=== PATIENT | female | born 1980 | race Caucasian/White ===

== ENCOUNTER 2017-01-05 08:58 | Emergency (ER) | payer OTHER | END 2017-01-05 10:25 | disposition home or self-care (01) | LOC: D.ER 08:58 | DX: M25.511 Pain in right shoulder (principal); Z91.81 History of falling ==

== ENCOUNTER 2017-03-07 08:58 | Emergency (ER) | payer OTHER | END 2017-03-07 10:42 | disposition home or self-care (01) | LOC: D.ER 08:58 | DX: S86.911A Strain of unspecified muscle(s) and tendon(s) at lower leg level, right leg, initial encounter (principal); X58.XXXA Exposure to other specified factors, initial encounter; Y93.89 Activity, other specified; Y92.89 Other specified places as the place of occurrence of the external cause; M54.5 Low back pain ==

== ENCOUNTER 2017-07-24 08:29 | Emergency (ER) | payer OTHER ==
[2017-07-24 09:40] LABS: HCG SERUM NEGATIVE (NEGATIVE)
== END 2017-07-24 12:02 | disposition home or self-care (01) ==
LOC: D.ER 08:29
PROVIDERS: Emergency Medicine
DX: S20.229A Contusion of unspecified back wall of thorax, initial encounter (principal); X50.0XXA Overexertion from strenuous movement or load, initial encounter; Y93.89 Activity, other specified; Y92.019 Unspecified place in single-family (private) house as the place of occurrence of the external cause; M54.6 Pain in thoracic spine

== ENCOUNTER 2018-09-18 18:52 | Emergency (ER) | payer SELFPAY ==
[~2018-09-18] VITALS: Ht 172.7 cm; Wt 84.1 kg
[2018-09-18 19:00] VITALS: Ht 172.7 cm; Wt 84.1 kg
[2018-09-18] MEDS ORDERED: KLONOPIN0.5 MG PO (19:02)
[2018-09-18] MEDS ORDERED: ULTRAM50 MG PO (19:02)
[2018-09-18 20:00] LABS: HEMATOCRIT 37.7 % (36.0-48.0); HEMOGLOBIN 12.8 g/dL (12-16); MCH 30.7 pg (26.0-34.0); MCV 90.4 fL (80.0-100.0); MEAN PLATELET VOLUME 10.2 fL (7.4-10.4); PLATELET COUNT 400 10x3/uL (130-400); RBC 4.17 10x6/uL (4.00-5.40); RDW 13.1 % (11.5-14.5); WBC 21.1 10x3/uL (4.8-10.8)
[2018-09-18 20:09] LABS: APPEARANCE CLOUDY (CLEAR); BACTERIA FEW /hpf (NONE SEEN); BILIRUBIN NEGATIVE (NEGATIVE); COLOR YELLOW (YELLOW); GLUCOSE NEGATIVE (NEGATIVE); KETONE NEGATIVE (NEGATIVE); NITRITE NEGATIVE (NEGATIVE); PROTEIN NEGATIVE (NEGATIVE); RED CELLS - URINE 0-5 /hpf (0-5); SPECIFIC GRAVITY 1.025 (1.005-1.020); UROBILINOGEN NORMAL (NORMAL); WHITE CELLS - URINE 0-5 /hpf (0-5)
[2018-09-18 20:16] LABS: ALBUMIN 3.7 g/dL (3.4-5.0); ANION GAP 11.1 mmol/L (8-16); BILIRUBIN - TOTAL 0.35 mg/dL (0.2-1.3); CARBON DIOXIDE 28.3 mmol/L (21.0-32.0); CREATININE - SERUM 1.2 mg/dL (0.6-1.3); POTASSIUM - SERUM 3.4 mmol/L (3.5-5.1); PROTEIN - SERUM 7.9 g/dL (6.4-8.2)
[2018-09-18 20:29] LABS: LYMPHOCYTES 26 % (15-50); MONOCYTES 12 % (2-11); NEUTROPHILS 62 % (40-80); PLATELET ESTIMATE INCREASED; PLATELET MORPHOLOGY NORMAL PLT MORPH
[2018-09-18] MEDS ORDERED: NORCO 10-325 TA1 TAB PO (23:04)
[2018-09-18] MEDS ORDERED: FLOMAX0.4 MG PO (23:04)
[2018-09-18 23:22] VITALS: BP 129/68
== END 2018-09-18 23:22 | disposition home or self-care (01) ==
LOC: D.ER 18:52
PROVIDERS: Emergency Medicine
DX: N20.0 Calculus of kidney (principal); R10.9 Unspecified abdominal pain; N13.30 Unspecified hydronephrosis; F17.200 Nicotine dependence, unspecified, uncomplicated

== ENCOUNTER 2019-04-07 17:07 | Emergency (ER) | payer OTHER ==
[~2019-04-07] VITALS: Ht 172.7 cm; Wt 79.1 kg
[~2019-04-07 17:07] MED LIST: FLOMAX0.4 MG PO; KLONOPIN0.5 MG PO; NORCO 10-325 TA1 TAB PO; ULTRAM50 MG PO
[2019-04-07 17:21] VITALS: Ht 172.7 cm; Wt 79.1 kg
[2019-04-07] MEDS ORDERED: ARTHROTEC EC 71 EACH PO (17:26)
[2019-04-07] MEDS ORDERED: TORADOL10 MG PO (18:09)
[2019-04-07 19:22] VITALS: BP 106/73
== END 2019-04-07 19:20 | disposition home or self-care (01) ==
LOC: D.ER 17:07
DX: S89.91XA Unspecified injury of right lower leg, initial encounter (principal); W18.31XA Fall on same level due to stepping on an object, initial encounter; Y93.89 Activity, other specified; Y92.019 Unspecified place in single-family (private) house as the place of occurrence of the external cause

== ENCOUNTER 2019-05-16 16:44 | Emergency (ER) | payer OTHER ==
[~2019-05-16] VITALS: Ht 172.7 cm; Wt 75.0 kg
[~2019-05-16 16:44] MED LIST changes: +ARTHROTEC EC 71 EACH PO; +TORADOL10 MG PO
[2019-05-16 16:48] VITALS: Ht 172.7 cm; Wt 75.0 kg
[2019-05-16] MEDS ORDERED: HYDROCODON-ACE1 EAC2 PO (18:19)
[2019-05-16 19:03] VITALS: BP 136/91
== END 2019-05-16 18:56 | disposition home or self-care (01) ==
LOC: D.ER 16:44
DX: K02.9 Dental caries, unspecified (principal); F17.210 Nicotine dependence, cigarettes, uncomplicated

== ENCOUNTER 2019-05-28 16:02 | Emergency (ER) | payer OTHER ==
[~2019-05-28] VITALS: Ht 172.7 cm; Wt 75.0 kg
[~2019-05-28 16:02] MED LIST changes: +HYDROCODON-ACE1 EAC2 PO
[2019-05-28 16:06] VITALS: Ht 172.7 cm; Wt 75.0 kg
[2019-05-28] MEDS ORDERED: DEPO-PROVERA (16:11)
[2019-05-28] MEDS ORDERED: VIBRAMYCIN 100100 MG PO (17:01)
[2019-05-28] MEDS ORDERED: VOLTAREN75 MG PO (17:01)
[2019-05-28 17:29] VITALS: BP 142/78
== END 2019-05-28 17:30 | disposition home or self-care (01) ==
LOC: D.ER 16:02
DX: K04.7 Periapical abscess without sinus (principal); K08.89 Other specified disorders of teeth and supporting structures

== ENCOUNTER 2019-07-29 07:25 | Outpatient (CLI) | payer OTHER ==
[2019-07-28 08:39] LABS: HEMATOCRIT 39.5 % (36.0-48.0); HEMOGLOBIN 13.3 g/dL (12-16); MCH 30.1 pg (26.0-34.0); MCHC 33.7 g/dL (31.0-37.0); MCV 89.4 fL (80.0-100.0); MEAN PLATELET VOLUME 9.7 fL (7.4-10.4); RBC 4.42 10x6/uL (4.00-5.40); RDW 14.1 % (11.5-14.5); WBC 20.8 10x3/uL (4.8-10.8)
[~2019-07-29] VITALS: Ht 170.2 cm; Wt 72.6 kg
[~2019-07-29 07:25] MED LIST changes: +DEPO-PROVERA; +TYLENOL W/CODEI1 TAB PO; +VIBRAMYCIN 100100 MG PO; +VOLTAREN75 MG PO
[2019-07-29 07:43] VITALS: BP 126/81; Ht 170.2 cm; Wt 72.6 kg
[2019-07-29] MEDS ORDERED: CALCIUM 600 +1 EAC3 PO (07:43)
[2019-07-29 08:39] LABS: HCG URINE NEGATIVE (NEGATIVE)
[2019-07-29 10:20] LABS: APPEARANCE CLEAR (CLEAR); BILIRUBIN NEGATIVE (NEGATIVE); COLOR STRAW (YELLOW); GLUCOSE NEGATIVE (NEGATIVE); KETONE NEGATIVE (NEGATIVE); NITRITE NEGATIVE (NEGATIVE); PROTEIN NEGATIVE (NEGATIVE); UROBILINOGEN NORMAL (NORMAL)
== END 2019-07-29 10:57 | disposition home or self-care (01) ==
LOC: D.OPS 07:25 → EDSTATUS 08:30 → D.OPS 08:30 → D.PAN 08:30 → D.OPS 08:45
PROVIDERS: Anesthesiology; ATTEND Orthopaedic Surgery
DX: M23.611 Other spontaneous disruption of anterior cruciate ligament of right knee (principal)

== ENCOUNTER 2019-11-24 22:46 | Emergency (ER) | payer OTHER ==
[~2019-11-24] VITALS: Ht 170.2 cm; Wt 77.3 kg
[~2019-11-24 22:46] MED LIST changes: +CALCIUM 600 +1 EAC3 PO
[2019-11-24 22:55] VITALS: Ht 170.2 cm; Wt 77.3 kg
[2019-11-24] MEDS ORDERED: HYDROCODONE-A1 UDTA2 PO (22:58)
[2019-11-24 23:16] LABS: APPEARANCE CLEAR (CLEAR); BILIRUBIN NEGATIVE (NEGATIVE); COLOR STRAW (YELLOW); GLUCOSE NEGATIVE (NEGATIVE); KETONE NEGATIVE (NEGATIVE); NITRITE NEGATIVE (NEGATIVE); PROTEIN NEGATIVE (NEGATIVE); SPECIFIC GRAVITY 1.005 (1.005-1.020); UROBILINOGEN NORMAL (NORMAL)
[2019-11-24 23:57] LABS: HEMATOCRIT 33.8 % (36.0-48.0); HEMOGLOBIN 10.8 g/dL (12-16); LYMPHOCYTES 53.2 % (15-50); MCH 27.8 pg (26.0-34.0); MCV 87.1 fL (80.0-100.0); MEAN PLATELET VOLUME 9.2 fL (7.4-10.4); NEUTROPHILS 39.4 % (40-80); RBC 3.88 10x6/uL (4.00-5.40); RDW 14.1 % (11.5-14.5); WBC 15.9 10x3/uL (4.8-10.8)
[2019-11-24 23:58] LABS: PLATELET COUNT 468 10x3/uL (130-400)
[2019-11-25 00:17] LABS: CALC OSMOLALITY 281 mosm/kg (275-300); CALCIUM 9.2 mg/dL (8.5-10.1); CHLORIDE - SERUM 103 mmol/L (98-107); CREATININE - SERUM 0.8 mg/dL (0.6-1.3); GLUCOSE 105 mg/dL (74-106); POTASSIUM - SERUM 4.1 mmol/L (3.5-5.1); SODIUM 141 mmol/L (136-145); UREA NITROGEN 14 mg/dL (7-18); eGFR NON AFRICAN AMERICAN 85 mL/min (90-120)
[2019-11-25 00:21] LABS: ALKALINE PHOSPHATASE 147 U/L (46-116); ALT (SGPT) 53 U/L (10-68); BILIRUBIN - TOTAL 0.08 mg/dL (0.2-1.3); LIPASE 217 U/L (73-393); PROTEIN - SERUM 7.7 g/dL (6.4-8.2)
[2019-11-25 01:58] VITALS: BP 126/85
== END 2019-11-25 01:58 | disposition left against medical advice (07) ==
LOC: D.ER 22:46
PROVIDERS: Family Medicine
DX: R10.9 Unspecified abdominal pain (principal); Z87.442 Personal history of urinary calculi

== ENCOUNTER 2020-01-19 16:09 | Emergency (ER) | payer OTHER ==
[~2020-01-19] VITALS: Ht 170.2 cm; Wt 76.8 kg
[~2020-01-19 16:09] MED LIST changes: +HYDROCODONE-A1 UDTA2 PO
[2020-01-19 16:18] VITALS: BP 121/89; Ht 170.2 cm; Wt 76.8 kg
== END 2020-01-19 17:50 | disposition home or self-care (01) ==
LOC: D.ER 16:09
DX: S60.222A Contusion of left hand, initial encounter (principal); W22.8XXA Striking against or struck by other objects, initial encounter; Y93.9 Activity, unspecified; Y92.9 Unspecified place or not applicable

== ENCOUNTER → 2020-03-28 07:47 | Outpatient (CLI) | payer OTHER ==
[~2020-03-28] VITALS: Ht 172.7 cm; Wt 79.5 kg
[2020-03-28 08:09] LABS: ANION GAP 9.6 mmol/L (8-16); CALCIUM 8.9 mg/dL (8.5-10.1); CREATININE - SERUM 0.9 mg/dL (0.6-1.3); POTASSIUM - SERUM 4.6 mmol/L (3.5-5.1)
[2020-03-28 08:11] LABS: APTT 27.6 SECONDS (22.8-39.4); INR 0.97 (0.85-1.17); PROTIME 12.8 SECONDS (11.6-15.0)
[2020-03-28 08:16] LABS: MCH 29.5 pg (26.0-34.0); MCHC 31.7 g/dL (31.0-37.0); MCV 93.2 fL (80.0-100.0); MEAN PLATELET VOLUME 9.5 fL (7.4-10.4); RDW 13.7 % (11.5-14.5); WBC 15.1 10x3/uL (4.8-10.8)
[2020-03-28 08:17] LABS: PLATELET COUNT 374 10x3/uL (130-400)
[2020-03-28 08:27] LABS: HCG SERUM NEGATIVE (NEGATIVE)
[2020-03-28 08:35] VITALS: Ht 172.7 cm; Wt 79.5 kg
[2020-03-28 10:04] LABS: LYMPHOCYTES 52 % (15-50); MONOCYTES 5 % (2-11); NEUTROPHILS 43 % (40-80); PLATELET ESTIMATE NORMAL
[2020-03-28 10:05] LABS: HYPOCHROMASIA OCC; ROULEAUX OCC
== END | disposition home or self-care (01) ==
LOC: D.CT 02-10 10:00
PROVIDERS: Radiology Vascular & Interventional Radiology; ATTEND Internal Medicine Hematology & Oncology
DX: D72.820 Lymphocytosis (symptomatic) (principal); R53.83 Other fatigue

== ENCOUNTER 2021-05-16 17:19 | Emergency (ER) | payer OTHER ==
[~2021-05-16] VITALS: Ht 172.7 cm; Wt 74.5 kg
[2021-05-16 17:29] VITALS: BP 113/77; Ht 172.7 cm; Wt 74.5 kg
[2021-05-16] MEDS ORDERED: CYCLOBENZAPRINE10 MG PO (17:30)
[2021-05-16] MEDS ORDERED: HYDROCODONE-AC1 EAC2 PO (17:30)
== END 2021-05-16 20:48 | disposition left against medical advice (07) ==
LOC: D.ER 17:19
DX: S05.92XA Unspecified injury of left eye and orbit, initial encounter (principal); Z53.29 Procedure and treatment not carried out because of patient's decision for other reasons; X58.XXXA Exposure to other specified factors, initial encounter